=== PATIENT | male | born 2000 | race Hispanic/Latino ===

== ENCOUNTER 2022-10-26 12:34 | Emergency (ER) | payer SELFPAY ==
[~2022-10-26] VITALS: Ht 170.2 cm; Wt 102.1 kg
[2022-10-26] MEDS ORDERED: PENICILLIN G BENZATHINE LA 1.2 MU TBX IM STA (12:44)
[2022-10-26 12:47] VITALS: O2SAT 96
[2022-10-26] MEDS ORDERED: IBUPROFEN600 MG PO (12:54)
== END 2022-10-26 13:29 | disposition home or self-care (01) ==
LOC: FSED 12:36
DX: J02.0 Streptococcal pharyngitis (principal)
CPT/HCPCS: 99282; J0561